=== PATIENT | male | born 1955 | race Caucasian/White ===

== ENCOUNTER 2016-12-23 19:44 | Inpatient (IN) | payer MEDICARE ==
--- NOTE | ~2016-12-23 | HP ---
History And Physical [facility] [address] [facility] [place]. [address] NAME: MARY ANNE VENTURA : 59 STATUS : ADM Tk PAT#: [id number] AGE: 61 ADM/REG DATE : 12/24/16 MR#: [id number] REPORT SERV DATE: 12/24/16 DICTATED BY: NICKO LIN DATE: 12/24/16 REPORT STATUS : Draft TRANSCRIBED BY: MODL DATE: 12/24/16 DATE OF ADMISSION: 12/24/2016 CHIEF COMPLAINT: Headache, unsteady gait. HISTORY OF PRESENT ILLNESS: This is a 61-year-old male with a history of recent carotid endarterectomy done on 12/13/[address] Thanh Iverson, history of diabetes mellitus type 2, coronary artery disease with stent, who presents to the emergency room at [facility] with the above-mentioned complaint. History is obtained from the patient and reviewing data available on the [facility] system. According to the patient, he had been in his usual state of health and today, he had a headache and he felt he was not doing right. He also felt he was not able to balance properly as well. He was concerned he was having a stroke and decided to come to the emergency room to be evaluated. In the emergency room, initial workup revealed that he had acute kidney injury, leukocytosis, and of course, he had recent carotid endarterectomy. A CT scan of his brain showed hypodensity in the left periventricular deep white matter as well. A 12-lead EKG was also normal. Hospitalist Service is asked to admit him for further evaluation and treatment. At the time of my evaluation, he denied any chest pain, palpitations, or orthopnea. He had no cough, hemoptysis, night sweats, or weight loss. Denied any recent fevers or chills. He had no nausea, vomiting, or diarrhea. Denied any hematemesis, hematochezia, or hematuria. No other history of recent travel or exposures. PAST MEDICAL HISTORY: Significant for history of diabetes mellitus, poorly controlled coronary artery disease with stents in the past, COPD with current tobacco use, history of essential hypertension, and hyperlipidemia. On 12/13/2016, he had carotid endarterectomy on the right side, done by Dr. Thanh Iverson. SOCIAL HISTORY: He has about 40- to [id number] history of smoking and continues to do so. He denies alcohol use or recreational drug use. FAMILY HISTORY: Noncontributory. MEDICATIONS: At home were reviewed by me in the chart today and reordered by me. REVIEW OF SYSTEMS: As in history of present illness. All other systems were reviewed in detail and are quite unremarkable. PHYSICAL EXAMINATION: GENERAL: This is a pleasant 61-year-old, not in any acute distress. HEENT: His head is atraumatic, normocephalic. He is alert, awake, oriented to time, place, History And Physical [address] [address] NAME: MARY ANNE VENTURA : 59 STATUS : ADM Tk PAT#: [id number] AGE: 61 ADM/REG DATE : 12/24/16 MR#: [id number] REPORT SERV DATE: 12/24/16 DICTATED BY: NICKO LIN DATE: 12/24/16 REPORT STATUS : Draft TRANSCRIBED BY: ROBERTO DATE: 12/24/16 and person. Pupils are equal, reacting to light and accommodating. External ocular muscles are intact. Membranes are moist and pink. Sclerae are nonicteric. NECK: Supple with no jugular venous distention, lymphadenopathy, or thyromegaly. LUNGS: Clear to auscultation with no wheezes, rubs, or crackles. HEART: Heart sounds were regular with no murmurs, rubs, or gallops. ABDOMEN: Soft, nontender. Bowel sounds are present. EXTREMITIES: Showed no cyanosis, clubbing, or edema. NEUROLOGIC: Grossly intact. No focal sensory or motor deficits. Higher functions appeared intact. VITAL SIGNS: Today showed a temperature of 97.7, pulse 86, respirations 18 a minute, blood pressure was 139/74, oxygen saturations were 97%, breathing 2 L of oxygen via nasal cannula. LABORATORY DATA: Reviewed on the [facility] Call [facility] system showed a sodium of 133, potassium 3.8, chloride 94, CO2 of 29, BUN was 25 with a creatinine of 1.52, and blood glucose was 166. CBC showed a white blood cell count of 18,700, which is up from 6.6 on 12/07/2016. Hemoglobin, hematocrit, and platelet count were within normal limits. His prothrombin time was 12.7 with an INR of 1.0 and urinalysis revealed no acute abnormality. Films were reviewed by me on the PACS today and interpreted by me. There is a hypodensity in the left periventricular deep white matter. A 12-lead EKG done in the emergency room was reviewed and interpreted by me. There is normal sinus rhythm with a rate of [address] elevations. IMPRESSION: 1. Gait abnormality. 2. Transient ischemic attack. 3. Acute kidney injury. 4. Leukocytosis. 5. Recent right carotid endarterectomy. 6. Diabetes mellitus type 2. 7. Coronary artery disease. 8. Chronic obstructive pulmonary disease. PLAN: We will admit Mr. Ventura to the Hospitalist Service with telemetry for a 24-hour observation period. We will follow non-tPA stroke orders. Consult Neurology to see him in the morning. Meanwhile, we will go ahead and get an MRI and MRA of his brain and an echocardiogram as well. We will start him on IV fluids for volume replacement. Follow chemistry and electrolytes in the morning. After cultures are obtained, we will start him on empiric IV antibiotics due to the fact that he has had recent surgery here. We will also check his procalcitonin. Follow Gram stains, cultures, and titrate accordingly. We will control blood sugars with NovoLog given subcutaneously per sliding scale. We will also place him on bronchodilators and continue supplemental oxygen therapy and continue the rest of his home medications. We will hold his STEPHANIE inhibitors and diuretics for tonight. I have discussed the above plans with the patient and his questions were answered. He is agreeable to the above recommendations. Hospitalist Service will be following him during his stay here. History And Physical [address] [address] NAME: MARY ANNE VENTURA : 59 STATUS : ADM Tk PAT#: [id number] AGE: 61 ADM/REG DATE : 12/24/16 MR#: [id number] REPORT SERV DATE: 12/24/16 DICTATED BY: NICKO LIN DATE: 12/24/16 REPORT STATUS : Draft TRANSCRIBED BY: ROBERTO DATE: 12/24/16 /ROBERTO Nicko Lin M.D. / [id number] CC: Gregory Agudelo MD
--- NOTE | ~2016-12-23 | CN ---
Consultation Report [facility] [address] [place]. [address] NAME: MARY ANNE VENTURA : 59 STATUS : ADM Tk PAT#: [id number] AGE: 61 ADM/REG DATE : 12/24/16 MR#: [id number] REPORT SERV DATE: 12/24/16 DICTATED BY: EDYTA BRIAN DATE: 12/24/16 REPORT STATUS : Draft TRANSCRIBED BY: MODL DATE: 12/24/16 NEUROLOGY CONSULTATION DATE OF CONSULTATION: 12/24/2016 REASON FOR CONSULTATION: TIA/stroke. PCP: [facility]. HOSPITALIST: Luis Myers MD HISTORY OF PRESENT ILLNESS: The patient is a 61-year-old male, who had a sudden onset of imbalance which started at noon yesterday. He was at home working in the yard with the [employer]. He suddenly felt off balance. He did not fall; however, he felt like he was going to fall. He did not mention that he had vertiginous symptoms, he just felt imbalanced. He also felt very weak. When questioned more extensively, he did mention that his vision was blurred. He was nauseated and threw up. He decided to go sit on the porch in his rocking chair and he fell asleep. He was asleep for approximately one hour and then woke up. When he woke up, he was "freezing." He stated that the temperature had gone down a little bit, and he was shaking and chilling. He denied any fever, however. He called his brother to come get him, and he was brought to the emergency department. The patient also denied any slurred speech. He denied any weakness or numbness on one side of the body compared to the other. The patient recently had a right carotid endarterectomy earlier this month. He denied any complications from that surgery. PAST MEDICAL HISTORY: Diabetes mellitus type 2, coronary artery disease, COPD, tobacco abuse, hypertension, hyperlipidemia, and inferior wall HI. PAST SURGICAL HISTORY: Right carotid endarterectomy and multiple stent placements. CURRENT MEDICATIONS: Albuterol inhaler p.r.n., aspirin 81 mg q.a.m., Lipitor 80 mg at bedtime, Plavix 75 mg at bedtime, Frannie 7.5/325 mg every six hours, Humulin N insulin on a sliding scale twice a day, Prinivil 2.5 mg q.a.m., metformin 500 mg b.i.d., and Spiriva Respimat 2.5 mcg inhaler spray two puffs daily. ALLERGIES: NONE. SOCIAL HISTORY: The patient is . He has three children. He is disabled, he was a garage construction equipment mechanic. He is a smoker. He does not drink alcohol or use illicits. FAMILY HISTORY: The patient's mother in her 50s from a motor vehicle accident. His father is 81 and alive. He has one brother, who is diabetic and has also had an HI. Consultation Report [place] [id number] [facility] [place]. [address] NAME: MARY ANNE VENTURA : 59 STATUS : ADM Tk PAT#: [id number] AGE: 61 ADM/REG DATE : 12/24/16 MR#: [id number] REPORT SERV DATE: 12/24/16 DICTATED BY: EDYTA BRIAN DATE: 12/24/16 REPORT STATUS : Draft TRANSCRIBED BY: ROBERTO DATE: 12/24/16 REVIEW OF SYSTEMS: All pertinent positives are in the HPI. PHYSICAL EXAMINATION: GENERAL: The patient is a 61-year-old male, who stands 5 feet 7 inches tall and weighs 137 pounds. VITAL SIGNS: He is afebrile. Heart rate 75, respiratory rate 20, O2 saturations on 2 L nasal cannula 94%, blood pressure 125/64. NEURO: The patient is alert. He is oriented x4. Pleasant. Communicates appropriately. Speech is clear. Language is fluent. Pupils are 3 mm, pupils are equal and reactive. EOMs are intact; however, there is nystagmus with lateral gaze. Cranial nerves II through XII are intact. Slight ataxia with [id number], more so on the left than the right. No pronator drift. No dysmetria, tremor, or asterixis. Upper extremities, there is no weakness, 5/5 bilaterally, upper DTRs are 1+ bilaterally, no sensory deficits. In the lower extremities, strength is a 4/5 bilaterally, DTRs are 2+ bilaterally, downgoing toes, position sense is intact, sensation is diminished from toes to mid calf of temperature, vibratory sense is diminished in the same distribution. The patient can get up. He can ambulate. He is somewhat ataxic. Romberg is negative. NECK: No carotid bruits, JVD, or thyromegaly. Surgical incision has slight drainage, it is slightly reddened. CARDIAC: Regular rate and rhythm. RESPIRATORY: There are slight expiratory wheezes and scattered rhonchi. Productive- sounding cough. LABORATORY DATA: CBC is normal. BMP, glucose is 395. Cholesterol is within normal range. CPK 375. Urinalysis is negative for a UTI. Chest x-ray, no acute changes. CT of the brain shows a hypodensity in the left periventricular region. NIH Stroke Scale is 2. ASSESSMENT/PLAN: 1. Probable stroke. MRI of the brain and MRA of the head and neck will be done. Echocardiogram with bubble study will also be completed. More lab work will be drawn. PT/OT consultation will be done. Teaching on risk factor reduction, particularly smoking sensation, has been done with the patient. The patient is now on aspirin 325 mg daily along with Plavix 75 mg daily and Lipitor 80 mg q.h.s. 2. Status post right carotid endarterectomy earlier this month. Thank you again for including us in consultation. We will continue to follow with you. KIRSTIE/ROBERTO Edyta Brian [facility]- Consultation Report [address] [address] NAME: MARY ANNE VENTURA : 59 STATUS : ADM Tk PAT#: [id number] AGE: 61 ADM/REG DATE : 12/24/16 MR#: [id number] REPORT SERV DATE: 12/24/16 DICTATED BY: EDYTA BRIAN DATE: 12/24/16 REPORT STATUS : Draft TRANSCRIBED BY: ROBERTO DATE: 12/24/16 / [id number] CC: MD Luis Garcia MD
--- NOTE | ~2016-12-23 | DS ---
Discharge Summary [facility] [address] [place]. [address] NAME: MARY ANNE VENTURA : 59 STATUS : DIS IN PAT#: [id number] AGE: 61 ADM/REG DATE : 12/25/16 MR#: [id number] REPORT SERV DATE: 12/27/16 DICTATED BY: WALTER ARAUZ DATE: 12/26/16 REPORT STATUS : Draft TRANSCRIBED BY: MODUmer DATE: 12/26/16 ADMISSION DATE: 12/25/2016 DISCHARGE DATE: 12/26/2016 PRINICIPAL DIAGNOSIS: TIA. SECONDARY DIAGNOSES: Peripheral arterial disease, recent CEA, type 2 diabetes, uncontrolled, tobacco abuse, and hypertension. HISTORY OF PRESENT ILLNESS: Please see Dr. Neil's of 12/24. HOSPITAL COURSE: Admitted with TIA symptoms with weakness and difficulty with speech. The patient recently had a CEA and there was a concern for a stroke. MRI and MRA showed no occlusive disease. Echocardiogram was negative, as was the bubble study. Endarterectomy appeared intact. Neurological symptoms in the meanwhile improved substantially, but A1c is under greater than 13, insulin was titrated. He was on a very inadequate insulin dose. He was put on a weight based regimen 25 units of 70/30 in the morning, 15 units in the evening with metformin a 1000 b.i.d., and diabetic education received, for him to discharge. Instructed to follow to jarad the glucose readings in a log book and show this to Nicki Adames, his primary care provider for followup of his blood sugars. Also encouraged not to smoke. Other medications were left unchanged. JERARDO/ROBERTO Walter Arauz M.D. / [id number] CC: Allen Wayne II, M.D.
[~2016-12-23 19:44] MED LIST: *UNABLE3; AMB5 PO; ASA5GR PO; ASABAYER PO; BRILINTA90 MG PO; COREG3 PO; FISH-EPA1000 MG PO; GLUCOPHAGE1000 MG PO; HUMULIN N1 ML SC; HYDROCO/APAP PO; LIPITOR80 MG PO; LISINOPRIL40 MG PO; LOP25 PO; METOPROLOL TARTRATE PO; NORCO1 TA2 PO; NORV10 PO; PLAVIX PO; PRIN5 PO; PROVHFA INH; SPIRIVA INH; SPIRIVA RESPIMAT INH; TRILIPIX135 MG PO; ZOLPIDEM PO
[2016-12-23 20:48] LABS: BASOPHILS 0.3 %; BASOPHILS ABSOLUTE 0.05 10/3/uL (0.0-0.16); EOSINOPHILS 0.2 %; EOSINOPHILS ABSOLUTE 0.03 10/3/uL (0.0-0.53); ER CBC TAT 0 Hrs 11 Mins; HEMATOCRIT 51.1 % (40.0-51.0); HEMOGLOBIN 18.5 g/dL (13.6-17.8); IMMATURE GRANULOCYTES 0.3 %; IMMATURE GRANULOCYTES ABSOLUTE 0.05 10/3/uL (0.0-0.11); LYMPHOCYTES 7.3 %; LYMPHOCYTES ABSOLUTE 1.36 10/3/uL (0.67-4.30); MANUAL DIFF NO %; MEAN CORPUS HGB CONC 36.2 g/dL (32.0-36.0); MEAN CORPUSCULAR HEMOGLOB 31.7 pg (26.0-34.0); MEAN CORPUSCULAR VOLUME 87.7 fL (80-100); MEAN PLATELET VOLUME 9.7 fL (9.2-13.0); MONOCYTES 4.4 %; MONOCYTES ABSOLUTE 0.83 10/3/uL (0.21-1.20); NEUTROPHILS 87.5 %; NEUTROPHILS ABSOLUTE 16.37 10/3/uL (2.02-8.40); PLATELET COUNT 263 10/3/uL (150-400); RBC DISTRIBUTION WIDTH 12.5 % (12.0-16.0); RED CELL COUNT 5.83 10/6/uL (4.7-6.1); WHITE BLOOD CELLS 18.7 10/3/uL (4.5-10.5)
[2016-12-23 20:52] LABS: PARTIAL THROMBO TIME 25.8 SEC (22.5-37.2); PROTIME (NOT ORD) 12.7 SEC (12.0-14.5)
[2016-12-23 20:58] LABS: CO2 (CARBON DIOXIDE) 29 MMOL/L (24-34); POTASSIUM, SERUM 3.8 MMOL/L (3.5-5.3)
[2016-12-23 21:01] LABS: BUN (BLOOD UREA NITROGEN) 25 MG/DL (6-23); CALCIUM, SERUM 10.2 MG/DL (8.5-10.4); CHLORIDE, SERUM 94 MMOL/L (96-112); CREATININE 1.52 MG/DL (0.70-1.30); GFR AFRICAN AMERICAN 57 ML/MIN (>=60); GFR NON AFRICAN AMERICAN 49 ML/MIN (>=60); GLUCOSE, SERUM 166 MG/DL (60-99); SODIUM, SERUM 133 MMOL/L (135-148)
[2016-12-23 23:51] LABS: PROCALCITONIN 0.07 ng/mL (<0.5)
[2016-12-24 00:40] LABS: ASCORBIC ACID (UR NOT ORDER) NEG (NEG); BILIRUBIN, URINE NEGATIVE (NEG); ER URINALYSIS TAT 0 Hrs 00 Mins; KETONE, URINE NEGATIVE (NEG); LEUKOCYTE ESTERASE(NOT OR NEG (NEG); NITRITE (URINE) NEG (NEG); WBC (NOT ORDERED) (RFLEX) 3 (0-5)
[2016-12-24 00:47] LABS: LACTATE 1.3 MMOL/L (0.3-2.4)
[2016-12-24 06:54] LABS: BUN (BLOOD UREA NITROGEN) 22 MG/DL (6-23); CHLORIDE, SERUM 101 MMOL/L (96-112); CHOL/HDL RATIO(NOT ORDER) 2.4 (0-5); CHOLESTEROL 87 MG/DL (< 200); CO2 (CARBON DIOXIDE) 27 MMOL/L (24-34); CPK (IF ELEVATED MB BANDS) 375 U/L (0-200); CREATININE 1.11 MG/DL (0.70-1.30); GFR AFRICAN AMERICAN 84 ML/MIN (>=60); GFR NON AFRICAN AMERICAN 72 ML/MIN (>=60); GLUCOSE, SERUM 395 MG/DL (60-99); HDL CHOLESTEROL 37 MG/DL (> 39); LDL CHOLESTEROL 32 MG/DL (< 130); NON-HDL CHOLESTEROL 50 MG/DL (< 160); PHOSPHORUS, SERUM 2.2 MG/DL (2.5-4.5); POTASSIUM, SERUM 3.9 MMOL/L (3.5-5.3); SODIUM, SERUM 136 MMOL/L (135-148); TRIGLYCERIDE 92 MG/DL (< 150); TROPONIN I <0.02 NG/ML (<0.05)
[2016-12-24 07:11] LABS: CK-MB 15.3 NG/ML; CKMB INDEX (NOT ORD) 4.1
[2016-12-24 07:13] LABS: BASOPHILS 0.3 %; BASOPHILS ABSOLUTE 0.03 10/3/uL (0.0-0.16); IMMATURE GRANULOCYTES 0.2 %; IMMATURE GRANULOCYTES ABSOLUTE 0.02 10/3/uL (0.0-0.11); LYMPHOCYTES 30.6 %; LYMPHOCYTES ABSOLUTE 3.09 10/3/uL (0.67-4.30); MEAN CORPUSCULAR HEMOGLOB 30.1 pg (26.0-34.0); MEAN CORPUSCULAR VOLUME 88.4 fL (80-100); MEAN PLATELET VOLUME 9.4 fL (9.2-13.0); MONOCYTES 7.8 %; MONOCYTES ABSOLUTE 0.79 10/3/uL (0.21-1.20); NEUTROPHILS 59.1 %; NEUTROPHILS ABSOLUTE 5.98 10/3/uL (2.02-8.40); PLATELET COUNT 225 10/3/uL (150-400); RBC DISTRIBUTION WIDTH 12.7 % (12.0-16.0); RED CELL COUNT 4.75 10/6/uL (4.7-6.1)
[2016-12-24 07:17] LABS: HEMOGLOBIN 14.3 g/dL (13.6-17.8); WHITE BLOOD CELLS 10.1 10/3/uL (4.5-10.5)
[2016-12-24 07:18] LABS: MANUAL DIFF NO %
[2016-12-24 13:38] LABS: FOLATE 8.6 NG/ML (>5.2); FREE T4 0.97 NG/DL (0.76-1.46); ULTRASENSITIVE TSH 0.31 MCIU/ML (0.358-3.740)
[2016-12-24 17:07] LABS: CK-MB 7.6 NG/ML; CKMB INDEX (NOT ORD) 3.3; TROPONIN I 0.02 NG/ML (<0.05)
[2016-12-24 22:43] LABS: CK-MB 5.8 NG/ML; TROPONIN I 0.02 NG/ML (<0.05)
[2016-12-24 22:44] LABS: CKMB INDEX (NOT ORD) 3.2
[2016-12-25 05:56] LABS: BASOPHILS 0.3 %; BASOPHILS ABSOLUTE 0.03 10/3/uL (0.0-0.16); EOSINOPHILS 2.7 %; EOSINOPHILS ABSOLUTE 0.27 10/3/uL (0.0-0.53); HEMATOCRIT 43.7 % (40.0-51.0); HEMOGLOBIN 14.7 g/dL (13.6-17.8); IMMATURE GRANULOCYTES 0.2 %; IMMATURE GRANULOCYTES ABSOLUTE 0.02 10/3/uL (0.0-0.11); LYMPHOCYTES 21.8 %; LYMPHOCYTES ABSOLUTE 2.15 10/3/uL (0.67-4.30); MEAN CORPUS HGB CONC 33.6 g/dL (32.0-36.0); MEAN CORPUSCULAR HEMOGLOB 30.1 pg (26.0-34.0); MEAN CORPUSCULAR VOLUME 89.5 fL (80-100); MEAN PLATELET VOLUME 9.8 fL (9.2-13.0); MONOCYTES ABSOLUTE 0.79 10/3/uL (0.21-1.20); NEUTROPHILS ABSOLUTE 6.58 10/3/uL (2.02-8.40); PLATELET COUNT 224 10/3/uL (150-400); RBC DISTRIBUTION WIDTH 12.8 % (12.0-16.0); RED CELL COUNT 4.88 10/6/uL (4.7-6.1); WHITE BLOOD CELLS 9.8 10/3/uL (4.5-10.5)
[2016-12-25 05:57] LABS: MANUAL DIFF NO %
[2016-12-25 06:12] LABS: CALCIUM, SERUM 7.6 MG/DL (8.5-10.4); CHLORIDE, SERUM 104 MMOL/L (96-112); CO2 (CARBON DIOXIDE) 27 MMOL/L (24-34); GFR AFRICAN AMERICAN 120 ML/MIN (>=60); GFR NON AFRICAN AMERICAN 103 ML/MIN (>=60); POTASSIUM, SERUM 4.1 MMOL/L (3.5-5.3); SODIUM, SERUM 138 MMOL/L (135-148)
[2016-12-25 06:16] LABS: BUN (BLOOD UREA NITROGEN) 13 MG/DL (6-23); GLUCOSE, SERUM 280 MG/DL (60-99)
[2016-12-25 19:01] LABS: MICROALBUMIN, RANDOM URINE < 0.5 MG/DL
[2016-12-26] MEDS ORDERED: INSNOV7030 SC ×2 (09:35)
[2017-04-29] MEDS ORDERED: PLAVIX PO (20:43)
[2017-04-29] MEDS ORDERED: INSNOV7030 SC (20:44)
[2017-04-29] MEDS ORDERED: NEUR600 PO (20:44)
[2017-04-29] MEDS ORDERED: ASAB PO (20:45)
[2017-04-29] MEDS ORDERED: GLUCOPHAGE1000 MG PO (20:45)
[2017-04-29] MEDS ORDERED: PRIN5 PO (20:46)
[2017-04-29] MEDS ORDERED: VENTOLIN HFA INH (20:47)
[2017-04-29] MEDS ORDERED: *UNABLE3 (20:49)
[2017-04-30] MEDS ORDERED: LIPITOR80 MG PO (11:03)
[2017-04-30] MEDS ORDERED: ALBUTEROL0.083 % INH (11:05)
== END 2016-12-26 15:07 | disposition home or self-care (01) | DRG 69 ==
LOC: ER 19:44 → 1SO 12-24 02:34
PROVIDERS: Emergency Medicine; Hospitalist; Internal Medicine; Internal Medicine Pulmonary Disease; Nurse Practitioner; Nurse Practitioner Acute Care
DX: G45.9 Transient cerebral ischemic attack, unspecified (principal); N17.9 Acute kidney failure, unspecified; I25.10 Atherosclerotic heart disease of native coronary artery without angina pectoris; J44.9 Chronic obstructive pulmonary disease, unspecified; E11.65 Type 2 diabetes mellitus with hyperglycemia; N28.9 Disorder of kidney and ureter, unspecified; I73.9 Peripheral vascular disease, unspecified; I10 Essential (primary) hypertension; E78.5 Hyperlipidemia, unspecified; F17.210 Nicotine dependence, cigarettes, uncomplicated; I25.2 Old myocardial infarction; Z98.61 Coronary angioplasty status; Z79.82 Long term (current) use of aspirin; Z79.84 Long term (current) use of oral hypoglycemic drugs; Z79.4 Long term (current) use of insulin; Z79.02 Long term (current) use of antithrombotics/antiplatelets; Z79.899 Other long term (current) drug therapy
CPT/HCPCS: 70450; 70544; 70548; 70551-52; 71010; 80048; 80061; 81001; 82043; 82306; 82533; 82550; 82553; 82607; 82746; 82962; 83036; 83605; 83735; 84100; 84145; 84439; 84443; 84484; 85025; 85610; 85730; 87040; 93005; 93306; 97161-GP; 99285; A9270-GY; A9577; G8978-CH-GP; G8979-CH-GP; G8980-CH-GP; J3411